=== PATIENT | male | born 1965 | race Caucasian/White ===

== ENCOUNTER 2025-01-09 21:24 | Emergency (ER) | payer MEDICARE ==
[~2025-01-09] VITALS: Ht 170.2 cm; Wt 65.8 kg
[2025-01-09 21:50] VITALS: PULSE 96; RESP 18; TEMP 97.6
[2025-01-09] MEDS ORDERED: ELIMITE60 GM TOP (21:50)
[2025-01-09 22:13] VITALS: BP 112/67; PULSE 18; O2SAT 97
== END 2025-01-09 22:00 | disposition home or self-care (01) ==
LOC: FSED 21:40
DX: B86 Scabies (principal)
CPT/HCPCS: 99283

== ENCOUNTER 2025-07-04 11:09 | Emergency (ER) | payer MEDICARE ==
[~2025-07-04] VITALS: Ht 167.6 cm; Wt 62.8 kg
[~2025-07-04 11:09] MED LIST: ELIMITE60 GM TOP
[2025-07-04] MEDS: SODIUM CHLORIDE 0.9% 1000ML 1,000 ML IV ONE (12:03)
[2025-07-04] MEDS: ONDANSETRON HCL INJ 2MG/ML 2ML 2 MG/ML VIAL IV STA (12:03)
[2025-07-04] MEDS: KETOROLAC TROMETHAMINE 30 MG/ML VIAL IV STA (12:03)
[2025-07-04] MEDS ORDERED: ULTRAM 50MG50 MG PO (14:06)
[2025-07-04 14:11] VITALS: PULSE 75; RESP 18; TEMP 97.9; O2SAT 99
== END 2025-07-04 14:18 | disposition home or self-care (01) ==
LOC: FSED 11:18
DX: R10.11 Right upper quadrant pain (principal); R11.0 Nausea; S22.31XA Fracture of one rib, right side, initial encounter for closed fracture; K57.90 Diverticulosis of intestine, part unspecified, without perforation or abscess without bleeding; I70.0 Atherosclerosis of aorta; J84.10 Pulmonary fibrosis, unspecified; R16.0 Hepatomegaly, not elsewhere classified
CPT/HCPCS: 71045; 74176; 76705; 80053; 81003; 85025; 96374; 96375; 99284; J1885; J2405; J7030